=== PATIENT | female | born 1935 | race Caucasian/White ===

== ENCOUNTER 2017-10-11 09:13 | Emergency (ER) | payer MEDICARE, OTHER, SELFPAY ==
[2017-10-11 09:14] VITALS: BP 158/75; PULSE 97; RESP 15; TEMP 36; O2SAT 95; BMI 33.0
[2017-10-11 09:22] VITALS: BP 193/86; PULSE 99; RESP 14; O2SAT 97
--- NOTE | 2017-10-11 09:31 | CT_ITS ---
STUDY: CT BRAIN WITHOUT CONTRAST REASON FOR EXAM: Female, 81 years old. Left-sided facial paresthesias and left arm numbness. RADIATION DOSAGE (If Supplied By Facility): CTDIvol = ( 44.99 ) mGy, DLP = ( 745.49 ) mGycm TECHNIQUE: Transaxial CT imaging of the brain was performed without administration of intravenous contrast material. Multiplanar reformations are submitted for interpretation. Individualized dose optimization techniques were used for this CT. COMPARISON: CT of the head dated December 30, 2016. FINDINGS: Normal soft tissue structures. Appears to be a jose hole within the high central frontal cranium. There is mild cerebral atrophy with widening of the extra-axial spaces and ventricular dilatation. There are areas of decreased attenuation within the white matter tracts of the supratentorial brain, consistent with microvascular disease changes. There is focal decreased attenuation in the right frontal lobe that may be the result of old infarct. Normal basal ganglia and thalami. Normal brainstem. There is mild cerebellar atrophy. There is no intracranial hemorrhage. There is mild atherosclerotic calcification of intracranial arteries. There is mild mucoperiosteal thickening within the ethmoid sinuses. CT/Brain/Head without Contrast IMPRESSION: 1. Chronic involutional changes of the brain. 2. No CT evidence of acute intracranial hemorrhage. Electronically Signed: Leah Sanford MD at 10:28 EST , Service support ,
--- NOTE | 2017-10-11 09:31 | EKG12_ITS ---
Test Reason : HTN Blood Pressure : / mmHG Vent. Rate : 081 BPM Atrial Rate : 081 BPM P-R Int : 160 ms QRS Dur : 118 ms QT Int : 388 ms P-R-T Axes : 054 -33 091 degrees QTc Int : 450 ms Normal sinus rhythm Left axis deviation Left ventricular hypertrophy with QRS widening Abnormal ECG Confirmed by MABLE OWEN, MYNOR ([id number]), assistant editor LISS GUIDRY ([id number]) on 10/13/2017 1:53:34 PM Referred By: GIOVANNY Confirmed By:MYNOR AKINS MD
[2017-10-11 09:38] VITALS: BP 172/72; PULSE 83; RESP 16; O2SAT 97
[2017-10-11 09:50] LABS: Bedside Glucose 141 mg/dL (70-110)
[2017-10-11 09:53] LABS: Absolute Lymphocyte Count 1.11 X10^3/ul (0.83-4.51); Absolute Neutrophil Count 3.3 X10^3/uL (2.0-7.7); Basophil# 0.03 X10^3/uL; Basophil% 0.6 % (0-1); Eosinophil# 0.11 X10^3/uL; Eosinophils% 2.2 % (0-5); Hematocrit 40.1 % (37-47); Hemoglobin 12.8 g/dl (12.0-15.0); Lymphocyte # 1.11 X10^3/ul (4.0); Lymphocyte % 22.7 % (19-41); Mean Corp Hgb Conc 31.9 g/gl (32-36); Mean Corpuscular Hgb 29.8 pg (27.0-32.0); Mean Corpuscular Volume 93.5 fL (81-99); Monocyte# 0.38 X10^3/uL; Monocyte% 7.8 % (0-10); Neutrophil # 3.26 X10^3/uL (2.7-7.7); Neutrophil % 66.5 % (47-70); Platelet Count 133 K/mm3 (150-450); RBC Distribution Width CV 13.5 % (11.6-14.6); RBC Distribution Width SD 45.8 fl (35.1-43.9); Red Blood Count 4.29 M/mm3 (4.2-5.4); White Blood Count 4.9 K/mm3 (4.4-11.0)
[2017-10-11 09:54] LABS: POSITIVE COUNT NO; POSITIVE DIFFERENTIAL NO; POSITIVE MORPHOLOGY NO
[2017-10-11 09:57] LABS: International Normalized Ratio 1.2; Prothrombin Time (Protime)PT. 14.5 SECONDS (11.7-14.9)
[2017-10-11 10:01] VITALS: BP 147/78; PULSE 73; RESP 15; O2SAT 96
[2017-10-11 10:03] LABS: Anion Gap 8 (5-15); BUN 14 mg/dL (7-18); BUN/Creat Ratio 12.8 RATIO (10-20); Calcium,Total 8.3 mg/dL (8.5-10.1); Chloride 107 mmol/L (98-107); Creatinine, Serum 1.09 mg/dL (0.55-1.02); EST Glomerular Filtration Rate 51 mL/min (>60); Est Glom Filt Rate - Afr Amer 62 mL/min (>60); Estimated Creatinine Clearance 36.14 ml/min; Glucose 121 mg/dL (74-106); Potassium 3.6 mmol/L (3.5-5.1); Sodium Level 141 mmol/L (136-145)
--- NOTE | 2017-10-11 10:31 | ED.DCSUM_ITS ---
- ER Visit Summary Date of Service: 10/11/17 Chief Complaint: Hypertension and left facial paresthesias History of Present Illness: The patient is a [address] Baires, Dr. Gallego, Dr. arlene Coronado, and Dr. Martin. She reports that her blood pressure typically runs 120 over 60s on her losartan. Over the past week it is been in the 160s systolic. She reports that she has left facial paresthesias that began yesterday. They seem to resolve and then returned today. She denies any facial droop. No weakness. No slurred speech. No a aphasia. No vertigo. She is not off balance. No change in her vision. She states that she had a headache yesterday above her left eye that was 7 out of 10 at worst. She denies a headache today. Patient denies any history of stroke. She reports that she does have atrial fibrillation and is on Xarelto. 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 Physical Examination: Vitals: Stable. Afebrile. General: Well-nourished and well-developed. Head: Normocephalic atraumatic. Neck: Supple, no lymphadenopathy. No JVD. Nontender. Cardiovascular: Regular rate and rhythm. No murmurs. Respiratory: No respiratory distress. Clear to auscultation bilaterally. Abdominal: Soft, nontender, nondistended, normal bowel sounds. No guarding, rebound, or peritoneal signs. Back: Nontender. Extremities: Nontender, no edema. Skin: Normal color, no rash. Neurologic: Alert and oriented ?3. Cranial nerves II through XII are intact. Normal strength and sensation. Psych: Normal affect. Test Results: EKG is sinus at 81 with an incomplete left bundle branch block. It is unchanged from December of last year. CBC is marked for platelets of 133. Chem-7 is more for creatinine 1.09, glucose of 121, and calcium of 8.3. Creatinine ranged between 1.05-1.27 in 2017. INR is 1.2 and PTT is 31.0. CT brain shows chronic changes and no acute disease. Emergency Department Course and Treatment: Patient has no facial paresthesias on exam. Her NIH scale is 0. She is not a TPA candidate. Treatment Plan: The patient was discussed with Dr. Jimenez on who states that this is not a stroke. Questions the possibility of a trigeminal problem. She was then discussed with Dr. De Jesus who asked that we increase her losartan to 100 mg a day and have her follow-up with Dr. Mateusz wilkinson on October 18 as previously scheduled for a blood pressure check. Patient is instructed to follow-up with her primary care physician for further evaluation of the facial paresthesias. Disposition: To home in improved and stable condition. Impression: 1. Left facial paresthesias. 2. Coagulopathy on Xarelto. 3. Hypertension. This note was generated with [employer] dictation software. It may contain incorrect words, spelling, and punctuation that were not noted in review of the chart prior to signing ED Disposition - Plan for ED Patient: Disposition: Home or Assisted Living Chief Complaint: Hypertension Instructions: ED HTN Established Prescriptions: Losartan Potassium 100 mg PO DAILY #30 tablet Referrals: Hugo Baires MD [STAFF PHYSICIAN] - Keep Sánchez appointment
[2017-10-11 12:12] VITALS: BP 147/78; PULSE 73; RESP 15; O2SAT 96
== END 2017-10-11 12:13 | disposition home or self-care (01) ==
PROVIDERS: Emergency Provider Emergency Medicine
DX: R20.2 Paresthesia of skin (principal); D68.9 Coagulation defect, unspecified; I10 Essential (primary) hypertension; I44.7 Left bundle-branch block, unspecified; I48.91 Unspecified atrial fibrillation; E78.00 Pure hypercholesterolemia, unspecified; Z79.01 Long term (current) use of anticoagulants
CPT/HCPCS: 70450; 80048; 82962; 85025; 85610; 85730; 93005; 99284

== ENCOUNTER → 2018-03-17 09:53 | Outpatient (CLI) | payer MEDICARE, OTHER, SELFPAY ==
--- NOTE | 2018-03-17 13:22 | PFT ---
INTRODUCTION: The patient is an 82-year-old female that presents for pulmonary function testing secondary to a diagnosis of bronchiolitis. Respiratory therapy reports good patient effort. Bronchodilators were used during testing. INTERPRETATION: Forced expiration spirometry demonstrates no evidence of a large airways obstructive ventilatory defect. There was no significant response to aerosolized bronchodilators. Spirograms are of good quality and plateau gradually indicating slow emptying of the lungs. The respiratory flow volume loop appears normal. Body plethysmography was performed and reveals lung volumes to be within normal limits. Diffusing capacity by single breath CO is moderately reduced at 54% of predicted. When compared to previous pulmonary function studies dated July 2016, there has been a 22% reduction in DLCO. IMPRESSION: These pulmonary function studies demonstrate the presence of an isolated moderate reduction in diffusing capacity, which could be related to an underlying pulmonary vascular disorder such as pulmonary hypertension. There has been worsening in the patient's DLCO since PFTs were last completed in July 2016.
== END ==
PROVIDERS: Visit Provider Internal Medicine Critical Care Medicine
DX: J47.9 Bronchiectasis, uncomplicated (principal); R94.2 Abnormal results of pulmonary function studies
CPT/HCPCS: 94060; 94726; 94729

== ENCOUNTER → 2018-03-21 10:46 | Outpatient (CLI) | payer MEDICARE, OTHER, SELFPAY ==
[2018-03-21 11:22] VITALS: PULSE 103; PULSE 77; PULSE 81; PULSE 94; PULSE 97; PULSE 98; PULSE 99; O2SAT 94; O2SAT 95; O2SAT 96; O2SAT 97
--- NOTE | 2018-03-21 15:54 | WT_ITS ---
PSN 6 Minute Walk Test - 6 Minute Walk Test 6 Minute Walk Test: 6 Minute Walk Test PSN:6-Minute Walk Test Start: 03/21/18 11: 19 Freq: Status: Active Protocol: RESP.6MINW Document 03/21/18 11:22 OSVALDO (Rec: 03/21/18 11:26 OSVALDO [id number]) 6 Minute Walk Test Date Performed 03/21/18 Time Performed 11:00 Height 5 ft 4 in Weight: 83.915 kg Weight in Pounds 185.[address]: Jerry Dietz Assistive device used: None Pre-test Oxygen Delivery Method Room Air Pulse Ox (%) 96 Pulse Rate (60-100 beats/min) 77 Dyspnea Dionne Scale (0-10) 0 Exertion Dionne Scale (6-20) 6 1st minute Oxygen Delivery Method Room Air Pulse Ox (%) 95 Pulse Rate (60-100 beats/min) 94 2nd minute Oxygen Delivery Method Room Air Pulse Ox (%) 94 Pulse Rate (60-100 beats/min) 97 3rd minute Oxygen Delivery Method Room Air Pulse Ox (%) 95 Pulse Rate (60-100 beats/min) 97 4th minute Oxygen Delivery Method Room Air Pulse Ox (%) 95 Pulse Rate (60-100 beats/min) 103 H 5th minute Oxygen Delivery Method Room Air Pulse Ox (%) 95 Pulse Rate (60-100 beats/min) 98 6th minute Oxygen Delivery Method Room Air Pulse Ox (%) 95 Pulse Rate (60-100 beats/min) 99 Dyspnea Dionne Scale (0-10) 0 Exertion Dionne Scale (6-20) 12 Post-test Oxygen Delivery Method Room Air Pulse Ox (%) 97 Pulse Rate (60-100 beats/min) 81 Full Laps Walked 17 Partial Lap, Number of Tiles Walked 15 Total Distance Walked (ft) 1018 - Interpretation Interpretation: The patient was able to ambulate 1018 feet over the course of 6 minutes on room air with no assistive devices or breaks. No significant desaturation was appreciated. No tachycardia was appreciated. These findings are consistent with a normal exercise oximetry. - Recommendations Recommendations: No supplemental oxygen is indicated at this time.
== END ==
PROVIDERS: Visit Provider Internal Medicine Critical Care Medicine
DX: Z00.8 Encounter for other general examination (principal)
CPT/HCPCS: 94618

== ENCOUNTER → 2018-09-26 14:17 | Outpatient (CLI) | payer MEDICARE, OTHER, SELFPAY ==
[2018-07-18 14:59] VITALS: BMI 30.5
[2018-09-26 15:52] LABS: T4 Total, Thyroxin 10.5 ug/dL (4.8-13.9); Thyroid Stim Hormone (TSH) 3.06 uIU/mL (0.358-3.74)
== END ==
PROVIDERS: Referring Provider Physician Assistant Medical; Visit Provider Physician Assistant Medical
DX: E03.9 Hypothyroidism, unspecified (principal); Z79.899 Other long term (current) drug therapy
CPT/HCPCS: 36415; 84436; 84443

== ENCOUNTER → 2018-10-07 07:53 | Outpatient (CLI) | payer MEDICARE, OTHER, SELFPAY ==
[2018-07-18 14:59] VITALS: BMI 30.5
--- NOTE | 2018-10-07 08:05 | RAD_ITS ---
STUDY: X-RAY - LEFT SHOULDER REASON FOR EXAM: Female, 82 years old. Chronic pain. TECHNIQUE: 4 view(s) of the shoulder. COMPARISON: None. FINDINGS: There is moderate degenerative arthrosis of the glenohumeral articulation. Normal acromioclavicular joint. Normal acromion. There is an enthesopathic erosion of the humeral head. There is a small calcification inferior to the acromion process which could represent calcific tendinitis or small intra-articular loose body. Normal visualized pulmonary apex. RAD/Shoulder min 2 Views IMPRESSION: Degenerative arthrosis of the left shoulder as described above. Electronically Signed: Luis Manuel Delgado MD at 8:39 EST Tel , Service support ,
== END ==
DX: M25.512 Pain in left shoulder (principal)
CPT/HCPCS: 73030

== ENCOUNTER → 2019-07-14 07:14 | Outpatient (CLI) | payer MEDICARE, OTHER, SELFPAY ==
[2018-07-18 14:59] VITALS: BMI 30.5
[2019-07-14 08:27] LABS: AST(SGOT) 24 U/L (15-37); Alanine Aminotransfer ALT/SGPT 34 U/L (13-56); Albumin, Serum 3.6 g/dL (3.2-5.0); Alkaline Phosphatase 74 U/L (45-117); Bilirubin, Direct 0.12 mg/dL (0.00-0.30); Cholesterol 149 mg/dL (200); Globulin 2.9 g/dL (2.2-4.2); High Density Lipoprotein 72 mg/dL; Protein, Total 6.5 g/dL (6.4-8.2); Triglycerides 68 mg/dL; Very Low Density Lipoprotein 14 mg/dL (5-40)
== END ==
PROVIDERS: Referring Provider Internal Medicine Cardiovascular Disease; Visit Provider Internal Medicine Cardiovascular Disease
DX: E78.00 Pure hypercholesterolemia, unspecified (principal)
CPT/HCPCS: 36415; 80061; 80076

== ENCOUNTER → 2019-08-17 09:30 | Outpatient (CLI) | payer MEDICARE, OTHER, SELFPAY ==
[2019-08-02 15:15] VITALS: BMI 31.2
[2019-08-17 10:22] LABS: T4 Total, Thyroxin 11.4 ug/dL (4.8-13.9); Thyroid Stim Hormone (TSH) 3.41 uIU/mL (0.358-3.74)
== END ==
PROVIDERS: Referring Provider Internal Medicine Cardiovascular Disease; Visit Provider Internal Medicine Cardiovascular Disease
DX: I48.0 Paroxysmal atrial fibrillation (principal)
CPT/HCPCS: 36415; 84436; 84443

== ENCOUNTER → 2020-05-14 08:44 | Outpatient (CLI) | payer MEDICARE, OTHER, SELFPAY ==
[2019-08-02 15:15] VITALS: BMI 31.2
[2020-05-14 10:25] LABS: Free T3 2.3 pg/mL (2.18-3.98); T4 Free Direct 1.07 ng/dL (0.76-1.46); Thyroid Stim Hormone (TSH) 3.91 uIU/mL (0.358-3.74)
== END ==
PROVIDERS: Referring Provider Physician Assistant Medical; Visit Provider Physician Assistant Medical
DX: E03.9 Hypothyroidism, unspecified (principal)
CPT/HCPCS: 36415; 84439; 84443; 84481

== ENCOUNTER → 2020-09-03 08:00 | Outpatient (CLI) | payer MEDICARE, OTHER, SELFPAY ==
[2020-07-29 11:30] VITALS: BMI 30.7
[2020-09-03 09:10] LABS: AST(SGOT) 32 U/L (15-37); Alanine Aminotransfer ALT/SGPT 44 U/L (13-56); Albumin, Serum 3.8 g/dL (3.2-5.0); Alkaline Phosphatase 86 U/L (45-117); Bilirubin, Direct 0.17 mg/dL (0.00-0.30); Cholesterol 140 mg/dL (200); Globulin 2.8 g/dL (2.2-4.2); High Density Lipoprotein 76 mg/dL; Protein, Total 6.6 g/dL (6.4-8.2); Triglycerides 70 mg/dL; Very Low Density Lipoprotein 14 mg/dL (5-40)
== END ==
PROVIDERS: Referring Provider Internal Medicine Cardiovascular Disease; Visit Provider Internal Medicine Cardiovascular Disease
DX: E78.00 Pure hypercholesterolemia, unspecified (principal)
CPT/HCPCS: 36415; 80061; 80076

== ENCOUNTER 2020-09-06 10:21 | Outpatient (RCR) | payer MEDICARE, OTHER, SELFPAY ==
[2020-07-29 11:30] VITALS: BMI 30.7
== END 2020-09-06 23:59 ==
LOC: IMMUN 10:21
PROVIDERS: Visit Provider Family Medicine
DX: Z23 Encounter for immunization (principal)
CPT/HCPCS: 0011A; 0012A; 91301

== ENCOUNTER → 2021-05-23 08:17 | Outpatient (CLI) | payer MEDICARE, OTHER, SELFPAY ==
[2021-05-23 10:12] LABS: ALB/GLOB Ratio 1.1 RATIO (0.9-2.4); AST(SGOT) 30 U/L (15-37); Alanine Aminotransfer ALT/SGPT 45 U/L (13-56); Albumin, Serum 3.4 g/dL (3.2-5.0); Alkaline Phosphatase 76 U/L (45-117); Anion Gap 5 (5-15); BUN 14 mg/dL (7-18); Calcium,Total 8.5 mg/dL (8.5-10.1); Chloride 106 mmol/L (98-107); Cholesterol 142 mg/dL (200); EST Glomerular Filtration Rate 56 mL/min (>60); Est Glom Filt Rate - Afr Amer 68 mL/min (>60); Free T3 2.2 pg/mL (2.18-3.98); Globulin 3.1 g/dL (2.2-4.2); Glucose 95 mg/dL (74-106); High Density Lipoprotein 71 mg/dL; Potassium 4.1 mmol/L (3.5-5.1); Protein, Total 6.5 g/dL (6.4-8.2); Sodium Level 139 mmol/L (136-145); T4 Free Direct 1.16 ng/dL (0.76-1.46); Thyroid Stim Hormone (TSH) 3.54 uIU/mL (0.358-3.74); Triglycerides 64 mg/dL; Very Low Density Lipoprotein 13 mg/dL (5-40)
== END ==
PROVIDERS: PCP Family Medicine; Referring Provider Family Medicine; Visit Provider Family Medicine
DX: E03.9 Hypothyroidism, unspecified (principal); I10 Essential (primary) hypertension
CPT/HCPCS: 36415; 80053; 80061; 84439; 84443; 84481

== ENCOUNTER 2021-11-07 10:43 | Outpatient (CLI) | payer MEDICARE, OTHER, SELFPAY ==
[2021-11-07 12:31] LABS: Thyroid Stim Hormone (TSH) 2.62 uIU/mL (0.358-3.74)
== END 2021-11-07 23:59 | disposition home or self-care (01) ==
LOC: MFPLAB 10:46
PROVIDERS: PCP Family Medicine; Referring Provider Family Medicine; Visit Provider Family Medicine
DX: E03.9 Hypothyroidism, unspecified (principal)
CPT/HCPCS: 36415; 84443

== ENCOUNTER → 2022-05-06 | Outpatient (CLI) | payer MEDICARE, OTHER, SELFPAY ==
--- NOTE | 2022-05-06 09:10 | RAD_ITS ---
STUDY: X-RAY - LEFT SHOULDER REASON FOR EXAM: Female, 86 years old. Pain. TECHNIQUE: 4 view(s) of the shoulder. COMPARISON: 10/07/2018. FINDINGS: Osteopenia. Moderate arthrosis of the glenohumeral joint with osteophyte formation unchanged. Moderate arthrosis of the AC joint unchanged. Sclerosis and cystic change of the humeral head, unaltered. Calcific tendinopathy unaltered. Normal visualized pulmonary apex. RAD/Shoulder min 2 Views IMPRESSION: Stable osteopenia, osteoarthrosis of the glenohumeral and acromioclavicular joints, sclerosis and cystic changes of the humeral head and calcific tendinopathy. No acute abnormality or erosive changes. Electronically Signed: Stas Sánchez, at 12:22 EDT ,
[2022-05-06 10:53] LABS: Anion Gap 7 (5-15); BUN 13 mg/dL (7-18); BUN/Creat Ratio 11.8 RATIO (10-20); Calcium,Total 8.8 mg/dL (8.5-10.1); Chloride 108 mmol/L (98-107); EST Glomerular Filtration Rate 50 mL/min (>60); Est Glom Filt Rate - Afr Amer 61 mL/min (>60); Glucose 103 mg/dL (74-106); Potassium 3.6 mmol/L (3.5-5.1); Sodium Level 142 mmol/L (136-145); T4 Free Direct 1.15 ng/dL (0.76-1.46); Thyroid Stim Hormone (TSH) 3.28 uIU/mL (0.358-3.74)
== END | disposition home or self-care (01) ==
LOC: MTLAB 08:18
PROVIDERS: PCP Family Medicine; Referring Provider Family Medicine; Visit Provider Family Medicine
DX: E03.9 Hypothyroidism, unspecified (principal); I10 Essential (primary) hypertension; M25.512 Pain in left shoulder
CPT/HCPCS: 36415; 73030; 80048; 84439; 84443; 84481

== ENCOUNTER → 2023-02-08 | Outpatient (CLI) | payer MEDICARE, OTHER, SELFPAY ==
[2023-02-08 10:21] LABS: Anion Gap 6 (5-15); BUN 15 mg/dL (7-18); BUN/Creat Ratio 15.8 RATIO (10-20); Calcium,Total 8.4 mg/dL (8.5-10.1); Chloride 108 mmol/L (98-107); Cholesterol 146 mg/dL (200); Creatinine, Serum 0.95 mg/dL (0.55-1.02); EST Glomerular Filtration Rate 60 mL/min (>60); Est Glom Filt Rate - Afr Amer 72 mL/min (>60); Free T3 1.8 pg/mL (2.18-3.98); Glucose 100 mg/dL (74-106); High Density Lipoprotein 71 mg/dL; Potassium 4.3 mmol/L (3.5-5.1); Sodium Level 140 mmol/L (136-145); T4 Free Direct 1.09 ng/dL (0.76-1.46); Thyroid Stim Hormone (TSH) 3.62 uIU/mL (0.358-3.74); Triglycerides 70 mg/dL; Very Low Density Lipoprotein 14 mg/dL (5-40)
== END | disposition home or self-care (01) ==
LOC: MFPLAB 08:08
PROVIDERS: PCP Family Medicine; Visit Provider Family Medicine
DX: Z00.00 Encounter for general adult medical examination without abnormal findings (principal); E03.9 Hypothyroidism, unspecified
CPT/HCPCS: 36415; 80048; 80061; 84439; 84443; 84481

== ENCOUNTER → 2023-09-09 | Outpatient (CLI) | payer MEDICARE, OTHER, SELFPAY ==
[2023-09-09 16:54] LABS: Anion Gap 5 (5-15); BUN 13 mg/dL (7-18); BUN/Creat Ratio 14.4 RATIO (10-20); Calcium,Total 9.1 mg/dL (8.5-10.1); Chloride 108 mmol/L (98-107); EST Glomerular Filtration Rate 63 mL/min (>60); Est Glom Filt Rate - Afr Amer 76 mL/min (>60); Glucose 91 mg/dL (74-106); Sodium Level 139 mmol/L (136-145); T4 Free Direct 1.21 ng/dL (0.76-1.46); Thyroid Stim Hormone (TSH) 2.51 uIU/mL (0.358-3.74)
== END | disposition home or self-care (01) ==
LOC: MFPLAB 11:46
PROVIDERS: PCP Family Medicine; Visit Provider Family Medicine
DX: I10 Essential (primary) hypertension (principal); E03.9 Hypothyroidism, unspecified
CPT/HCPCS: 36415; 80048; 84439; 84443; 84481

== ENCOUNTER → 2024-03-03 | Outpatient (CLI) | payer MEDICARE, OTHER, SELFPAY ==
[2024-03-03 12:40] LABS: Anion Gap 8 (5-15); BUN 14 mg/dL (7-18); BUN/Creat Ratio 14.7 RATIO (10-20); Calcium,Total 8.5 mg/dL (8.5-10.1); Chloride 104 mmol/L (98-107); Cholesterol 145 mg/dL (200); Creatinine, Serum 0.95 mg/dL (0.55-1.02); EST Glomerular Filtration Rate 59 mL/min (>60); Est Glom Filt Rate - Afr Amer 72 mL/min (>60); Glucose 104 mg/dL (74-106); High Density Lipoprotein 72 mg/dL; Potassium 4.3 mmol/L (3.5-5.1); Sodium Level 138 mmol/L (136-145); Thyroid Stim Hormone (TSH) 3.13 uIU/mL (0.358-3.74); Triglycerides 66 mg/dL; Very Low Density Lipoprotein 13 mg/dL (5-40)
== END | disposition home or self-care (01) ==
LOC: MFPLAB 09:23
PROVIDERS: PCP Family Medicine; Visit Provider Family Medicine
DX: Z00.00 Encounter for general adult medical examination without abnormal findings (principal); E03.9 Hypothyroidism, unspecified
CPT/HCPCS: 36415; 80048; 80061; 84439; 84443; 84481

== ENCOUNTER → 2024-07-17 | Outpatient (CLI) | payer MEDICARE, OTHER, SELFPAY | END | disposition home or self-care (01) | LOC: PSN 08:14 | PROVIDERS: PCP Family Medicine; Referring Provider Physician Assistant Medical; Visit Provider Physician Assistant Medical | DX: R00.1 Bradycardia, unspecified (principal); I48.0 Paroxysmal atrial fibrillation; R00.2 Palpitations; R42 Dizziness and giddiness | CPT/HCPCS: 93225; 93226 ==

== ENCOUNTER → 2024-09-22 | Outpatient (CLI) | payer MEDICARE, OTHER, SELFPAY ==
[2024-09-22 12:59] LABS: ALB/GLOB Ratio 1.4 RATIO (0.9-2.4); AST(SGOT) 39 U/L (15-37); Alanine Aminotransfer ALT/SGPT 44 U/L (13-56); Albumin, Serum 4.1 g/dL (3.2-5.0); Alkaline Phosphatase 81 U/L (45-117); Anion Gap 8 (5-15); BUN 11 mg/dL (7-18); BUN/Creat Ratio 10.8 RATIO (10-20); Chloride 101 mmol/L (98-107); Cholesterol 144 mg/dL (200); Creatinine, Serum 1.02 mg/dL (0.55-1.02); EST Glomerular Filtration Rate 55 mL/min (>60); Est Glom Filt Rate - Afr Amer 66 mL/min (>60); Free T3 2.5 pg/mL (2.18-3.98); Glucose 99 mg/dL (74-106); High Density Lipoprotein 76 mg/dL; Potassium 3.8 mmol/L (3.5-5.1); Protein, Total 7.1 g/dL (6.4-8.2); Sodium Level 136 mmol/L (136-145); T4 Free Direct 1.34 ng/dL (0.76-1.46); Triglycerides 98 mg/dL; Very Low Density Lipoprotein 20 mg/dL (5-40)
== END | disposition home or self-care (01) ==
LOC: MTLAB 10:14
PROVIDERS: PCP Family Medicine; Referring Provider Family Medicine; Visit Provider Family Medicine
DX: E03.9 Hypothyroidism, unspecified (principal); I10 Essential (primary) hypertension
CPT/HCPCS: 36415; 80053; 80061; 84439; 84443; 84481

== ENCOUNTER → 2024-12-25 | Outpatient (CLI) | payer MEDICARE, OTHER, SELFPAY ==
--- NOTE | 2024-12-25 10:47 | VDUE_ITS ---
Reason For Study Reason For Study: Left arm pain Right Proximal Left Proximal Right subclavian vein is spontaneous, widely patent, Left jugular vein is spontaneous, widely patent, phasic, with no intraluminal echogenicity noted. phasic, with no intraluminal echogenicity noted. Left subclavian vein is spontaneous, widely patent, phasic, with no intraluminal echogenicity noted. Left Arm Left axillary vein is spontaneous, patent, phasic, competent, compressible and demonstrates augmentation. Left brachial vein is compressible. Left cephalic vein is compressible. Left basilic vein is compressible. Left Lower Arm Left radial vein is compressible. Left ulnar vein is compressible. Procedure This was a unilateral left upper extremity venous doppler examination. A preliminary report was called and/or faxed to Dr. Clement. VL/Venous Duplex US, Unilateral Interpretation Summary Deep veins of the left upper extremity are patent and compressible segmentally. There is no evidence of deep vein thrombosis. The superficial veins of the left upper extremity, the basilic and cephalic veins, are patent and compressible. There is no evidence of left upper extremity superficial thrombop hlebitis involving the veins imaged. The right subclavian vein appears patent. Ordering Physician: Hugo Yusuf Referring Physician: Hugo Yusuf Performed By: Bernice Kimball RVT ???
== END | disposition home or self-care (01) ==
PROVIDERS: PCP Family Medicine; Referring Provider Family Medicine; Visit Provider Family Medicine
DX: M79.602 Pain in left arm (principal)
CPT/HCPCS: 93971

== ENCOUNTER → 2025-01-12 | Outpatient (CLI) | payer MEDICARE, OTHER, SELFPAY ==
--- NOTE | 2025-01-12 16:24 | RAD_ITS ---
PROCEDURE: SHOULDER MIN 2 VIEWS 01/12/2025 REASON FOR EXAM: LEFT SHOULDER PAIN TECHNIQUE: Four views left shoulder COMPARISON: 05/06/2022 FINDINGS: No significant interval change in appearance of severe glenohumeral joint osteoarthrosis with medial inferior humeral head buttressing and heterotopic bone formation with appearance of intra-articular osseous bodies at the axillary recess and lower glenohumeral joint space narrowing with adjacent glenoid spurring, unchanged. Small area of intra-articular osseous body at the superior aspect of the joint subacromial versus synovial calcification appears unchanged. [id number] acromioclavicular joint osteoarthrosis again seen. No fracture or dislocation. The visualized left lung appears clear. There is now a dual lead pacemaker/possible AICD partially imaged. RAD/Shoulder min 2 Views IMPRESSION: No fracture or dislocation. No significant interval change in severe glenohumeral and [id number] acro mioclavicular joint osteoarthrosis as above. Reading Location: [id number]
== END | disposition home or self-care (01) ==
LOC: MTLAB 16:21
PROVIDERS: PCP Family Medicine; Referring Provider Family Medicine; Visit Provider Family Medicine
DX: M25.519 Pain in unspecified shoulder (principal)
CPT/HCPCS: 73030

== ENCOUNTER → 2025-03-23 | Outpatient (CLI) | payer MEDICARE, OTHER, SELFPAY ==
[2025-03-23 12:28] LABS: AST(SGOT) 37 U/L (<=31); Alanine Aminotransfer ALT/SGPT 34 U/L (<=34); Albumin, Serum 3.9 g/dL (3.4-4.8); Alkaline Phosphatase 82 U/L (35-104); Anion Gap 12 (5-15); BUN 9 mg/dL (4-19); BUN/Creat Ratio 11.1 RATIO (10-20); Calcium,Total 8.8 mg/dL (7.6-11.0); Carbon Dioxide 23.5 mmol/L (21.0-32.0); Chloride 99 mmol/L (98-108); Cholesterol 136 mg/dL (<=200); Free T3 2.3 pg/mL (2.18-3.98); Globulin 2.5 g/dL (2.2-4.2); Glucose 99 mg/dL (70-99); Low Density Lipoprotein Calc. 60 mg/dL; Potassium 4.1 mmol/L (3.3-5.1); Triglycerides 60 mg/dL; Very Low Density Lipoprotein 12 mg/dL (5-40); cholesterol:hdl ratio screen 2.13
== END | disposition home or self-care (01) ==
LOC: MFPLAB 09:58
PROVIDERS: PCP Family Medicine; Referring Provider Family Medicine; Visit Provider Family Medicine
DX: E03.9 Hypothyroidism, unspecified (principal); I10 Essential (primary) hypertension
CPT/HCPCS: 36415; 80053; 80061; 84439; 84443; 84481